=== PATIENT | female | born 1935 | race Caucasian/White ===

== ENCOUNTER 2016-12-06 07:10 | Emergency (ER) | payer MEDICARE ==
[~2016-12-06] VITALS: Ht 162.6 cm; Wt 70.0 kg
[~2016-12-06 07:10] MED LIST: (NONE)25 ML IM; ASPIRIN EC81 MG PO; ASPIRIN LOW81 M1 PO; ATENOLOL50 MG PO; B-12500 MCG PO; CIPROFLOXACN250 MG PO; CIPROFLOXACN500 MG PO; HYDROCHLOROT12.5 MG PO; HYDROCO/APAP1 T10 PO; LISINOPRIL20 M1 PO; LISINOPRIL20 MG PO; LORTAB 5/3255 MG PO; PRILOSEC20 MG PO; TRILIPIX45 MG PO; ULTRAM50 MG PO
[2016-12-06] MEDS ORDERED: ASPIRIN 8181 MG PO (07:31)
[2016-12-06 08:05] LABS: HEMATOCRIT 43.2 % (37.0-47.0); HEMOGLOBIN 14.5 g/dl (12.0-16.0); IMMATURE GRANULOCYTES 0.9 % (0.0-1.0); MEAN CELL VOLUME 103.8 fL CALC (80.0-100.0); MEAN CORPUSCULAR HGB 34.9 pG CALC (26.0-32.0); MEAN CORPUSCULAR HGB CONC 33.6 g/L CALC (32.0-36.0); NEUT# 8.27 thou/uL (2.00-7.15); RED BLOOD COUNT 4.16 mill/uL (4.20-5.60)
[2016-12-06 08:23] LABS: ALKALINE PHOSPHATASE 65 u/l (38-126); ANION GAP 16 (6-22 (CALC)); BILIRUBIN, TOTAL 1.2 mg/dL (0.0-1.4); BUN 12 mg/dL (8-23); BUN/CREATININE RATIO 21 (12-20 (CALC)); CALCIUM 9.2 mg/dL (8.4-10.2); CARBON DIOXIDE 27 mmol/l (22-30); CHLORIDE 102 mmol/l (95-108); CREATININE 0.6 mg/dL (0.5-1.0); GFR > 60 ML/MIN (>=60 (CALC)); GFR FOR AFR.AMER. > 60 ML/MIN (>=60 (CALC)); GLUCOSE 101 mg/dL (82-115); POTASSIUM 3.7 mmol/l (3.5-5.1); SGOT/AST 34 u/l (9-36); SGPT/ALT 21 u/l (11-66); SODIUM 142 mmol/l (137-146); TOTAL PROTEIN 7.5 g/dL (6.3-8.2)
[2016-12-06 08:31] LABS: MYOGLOBIN 93 ng/mL (0 - 62)
[2016-12-06] MEDS ORDERED: LORTAB 5-325 MG1 TAB PO (11:57)
[2016-12-06 12:01] VITALS: BP 197/89
[2016-12-06] MEDS ORDERED: MOTRIN400 MG PO (17:38)
== END 2016-12-06 13:38 | disposition home or self-care (01) ==
LOC: ED 07:10
PROVIDERS: Emergency Medicine
DX: S70.02XA Contusion of left hip, initial encounter (principal); W18.09XA Striking against other object with subsequent fall, initial encounter; Y92.008 Other place in unspecified non-institutional (private) residence as the place of occurrence of the external cause; Z96.643 Presence of artificial hip joint, bilateral; M25.552 Pain in left hip

== ENCOUNTER 2016-12-06 17:16 | Inpatient (IN) | payer MEDICARE ==
[~2016-12-06] VITALS: Ht 157.5 cm; Wt 74.8 kg
[~2016-12-06 17:16] MED LIST changes: +ASPIRIN 8181 MG PO; +LORTAB 5-325 MG1 TAB PO
[2016-12-06] MEDS ORDERED: MOTRIN400 MG PO (17:38)
[2016-12-06 18:09] LABS: URINE BILIRUBIN - DIPSTICK NEGATIVE (NEGATIVE); URINE BLOOD DIPSTICK SMALL (NEGATIVE); URINE CLARITY CLOUDY; URINE COLOR YELLOW; URINE GLUCOSE - DIPSTICK NEGATIVE (NEGATIVE); URINE KETONE NEGATIVE (NEGATIVE); URINE LEUK ESTERASE NEGATIVE (NEGATIVE); URINE NITRITE - DIPSTICK NEGATIVE (Negative); URINE PROTEIN - DIPSTICK 100 mg/dL (NEG-TRACE); URINE SPECIFIC GRAVITY 1.025; URINE UROBILINOGEN - DIPSTICK 0.2 E.U./dL (0.2)
[2016-12-06 18:17] LABS: URINE BACTERIA MANY hpf; URINE SQUAMOUS EPITHELIAL CELL FEW EPI/hpf (0-FEW)
[2016-12-06 19:00] VITALS: BP 197/75
[2016-12-07] VITALS (9 sets, daily range): BP systolic 138–230; BP diastolic 70–105
[2016-12-07 05:46] LABS: HEMOGLOBIN 15.5 g/dl (12.0-16.0); MEAN CELL VOLUME 104.1 fL CALC (80.0-100.0); MEAN CORPUSCULAR HGB 35.1 pG CALC (26.0-32.0); MEAN CORPUSCULAR HGB CONC 33.7 g/L CALC (32.0-36.0); RED BLOOD COUNT 4.42 mill/uL (4.20-5.60); RED CELL DISTRI WIDTH 14.2 % (11.5-15.5)
[2016-12-07 05:58] LABS: ANION GAP 16 (6-22 (CALC)); BUN 12 mg/dL (8-23); BUN/CREATININE RATIO 23 (12-20 (CALC)); CALCIUM 9.4 mg/dL (8.4-10.2); CARBON DIOXIDE 25 mmol/l (22-30); CHLORIDE 103 mmol/l (95-108); CREATININE 0.5 mg/dL (0.5-1.0); GFR > 60 ML/MIN (>=60 (CALC)); GFR FOR AFR.AMER. > 60 ML/MIN (>=60 (CALC)); GLUCOSE 110 mg/dL (82-115); MAGNESIUM 1.4 mg/dL (1.6-2.3); POTASSIUM 3.8 mmol/l (3.5-5.1); SODIUM 140 mmol/l (137-146)
[2016-12-07 12:56] LABS: CHOLESTEROL HDL RATIO 5.2 (<4.4 (CALC))
[2016-12-08 00:20] VITALS: BP 136/84
[2016-12-08 03:46] VITALS: BP 129/68
[2016-12-08 05:51] LABS: HEMOGLOBIN 14.9 g/dl (12.0-16.0); IMMATURE GRANULOCYTES 1.1 % (0.0-1.0); MEAN CELL VOLUME 104.7 fL CALC (80.0-100.0); MEAN CORPUSCULAR HGB 34.7 pG CALC (26.0-32.0); MEAN CORPUSCULAR HGB CONC 33.1 g/L CALC (32.0-36.0); NEUT# 8.1 thou/uL (2.00-7.15); RED BLOOD COUNT 4.3 mill/uL (4.20-5.60); RED CELL DISTRI WIDTH 14.7 % (11.5-15.5)
[2016-12-08 06:08] LABS: CALCIUM 8.8 mg/dL (8.4-10.2); CREATININE 1.2 mg/dL (0.5-1.0); MAGNESIUM 2.4 mg/dL (1.6-2.3); POTASSIUM 3.5 mmol/l (3.5-5.1)
[2016-12-08 07:49] VITALS: BP 153/73
[2016-12-08 09:35] VITALS: BP 153/73
== END 2016-12-08 13:09 | disposition short-term general hospital (02) | DRG 305 ==
LOC: ED 17:16 → ED-I 17:45 → ED 17:54 → MS2 17:55
PROVIDERS: Emergency Medicine; Nurse Practitioner Family; ADMIT Internal Medicine; ATTEND Internal Medicine
PROC: 0T9B70Z Drainage of Bladder with Drainage Device, Via Natural or Artificial Opening (ICD-10-PCS; principal; 2016-12-06)
DX: I16.0 Hypertensive urgency (principal); N17.9 Acute kidney failure, unspecified; N39.0 Urinary tract infection, site not specified; I45.2 Bifascicular block; E83.42 Hypomagnesemia; I10 Essential (primary) hypertension; I48.91 Unspecified atrial fibrillation; M19.90 Unspecified osteoarthritis, unspecified site; B96.20 Unspecified Escherichia coli [E. coli] as the cause of diseases classified elsewhere; M79.651 Pain in right thigh; W18.30XA Fall on same level, unspecified, initial encounter; Y92.009 Unspecified place in unspecified non-institutional (private) residence as the place of occurrence of the external cause; Z96.643 Presence of artificial hip joint, bilateral; Z85.3 Personal history of malignant neoplasm of breast; I49.8 Other specified cardiac arrhythmias